=== PATIENT | male | born 1995 | race Two or more races ===

== ENCOUNTER 2023-11-13 12:14 | Emergency (ER) | payer SELFPAY ==
[2023-11-13 12:25] VITALS: BP 138/83; PULSE 104; RESP 18; TEMP 98.7; BMI 28.9
[2023-11-13] MEDS ORDERED: DEXAMETHASONE 4 MG TABLET (FP) ONE ×2 (14:18→14:19)
[2023-11-13] MEDS: DEXAMETHASONE SOD PHOSPHATE 10 MG/1 ML VIAL PO ONE (14:20)
== END 2023-11-13 14:20 | disposition home or self-care (01) ==
LOC: JERFT 12:14 → JER 12:14 → JERFT 14:20
DX: H92.01 Otalgia, right ear (principal); J02.9 Acute pharyngitis, unspecified; R05.9 Cough, unspecified; R09.81 Nasal congestion; H66.91 Otitis media, unspecified, right ear; J06.9 Acute upper respiratory infection, unspecified; Z20.822 Contact with and (suspected) exposure to COVID-19
CPT/HCPCS: 0241U-QW; 99283-25; J1100